=== PATIENT | female | born 1995 | race African-American/Black ===

== ENCOUNTER 2017-09-17 11:56 | Emergency (ER) | payer SELFPAY ==
[~2017-09-17] VITALS: Ht 167.6 cm; Wt 75.0 kg
[2017-09-17 12:52] VITALS: BP 113/71
== END 2017-09-17 12:55 | disposition home or self-care (01) | DRG 153 ==
LOC: ED 11:56
DX: J02.9 Acute pharyngitis, unspecified (principal); H92.02 Otalgia, left ear; R51 Headache; R09.81 Nasal congestion; F17.290 Nicotine dependence, other tobacco product, uncomplicated

== ENCOUNTER 2021-05-14 13:08 | Emergency (ER) | payer MEDICAID ==
[~2021-05-14] VITALS: Ht 167.6 cm; Wt 70.0 kg
[2021-05-14] MEDS ORDERED: AMOXICILLIN500 M2 PO (13:47)
[2021-05-14 14:20] VITALS: BP 120/76
== END 2021-05-14 14:25 | disposition home or self-care (01) ==
LOC: ED 13:08
DX: K03.81 Cracked tooth (principal); F17.200 Nicotine dependence, unspecified, uncomplicated